=== PATIENT | male | born 1950 | race Caucasian/White ===

== ENCOUNTER → 2018-02-17 | Outpatient (CLI) | payer OTHER ==
--- NOTE | 2018-02-17 16:09 | 2DMMODE ---
[place] [address] 2 D/M-MODE ECHOCARDIOGRAM Name: MARCIA DEL CASTILLO Room: [facility]#: [id number] Admission: 02/17/18 Attend Phys: Jesse Nathan, Discharge: Date of : 46 Date of Service: 02/17/18 1609 Report #: [id number] THIS REPORT FOR: //name// APPROVED REPORT Study performed: 02/17/2018 09:19:03 EXAM: Comprehensive 2D, Doppler, and color-flow Echocardiogram Patient Location: Out-Patient BSA: 2.15 HR: 54 bpm BP: 142/76 mmHg Other Information Study Quality: Good Indications Murmur 2D Dimensions LVEF(%): 77.64 (>50%) IVSd: 11.00 (7-11mm) LVOT Diam: 20.30 (18-24mm) LVDd: 48.58 mm PWd: 11.03 (7-11mm) Ascending Ao: 34.63 (22-36mm) LVDs: 26.05 (25-40mm) Aortic Root: 25.05 mm Boss's LVEF: 77.64 % Volumes Left Atrial Volume (Systole) LA ESV Index: 25.00 mL/m2 Aortic Valve AoV Peak Pj.: 1.63 m/s AO Peak Gr.: 10.57 mmHg LVOT Max P.86 mmHg AO Mean Gr.: 6.77 mmHg LVOT Mean P.22 mmHg LVOT Max V: 1.72 m/s AO V2 VTI: 36.69 cm LVOT Mean V: 1.14 m/s NANCY (VTI): 2.98 cm2 LVOT V1 VTI: 33.82 cm Mitral Valve E/A Ratio: 0.72 MV Decel. Time: 408.17 ms MV E Max Pj.: 0.70 m/[place] [address] 2 D/M-MODE ECHOCARDIOGRAM Name: MARCIA DEL CASTILLO Room: [facility]#: [id number] Admission: 02/17/18 Attend Phys: Jesse Nathan, Discharge: Date of : 46 Date of Service: 02/17/18 1609 Report #: [id number] MV PHT: 118.37 ms MVA (PHT): 1.86 cm2 TDI E/Lateral E': 7.78 E/Medial E': 10.00 Medial E' Pj.: 0.07 m/s Lateral E' Pj.: 0.09 m/s Pulmonary Valve PV Peak Pj.: 1.09 m/s PV Peak Gr.: 4.73 mmHg Left Ventricle The left ventricle is normal size. There is normal LV segmental wall motion. There is normal left ventricular wall thickness. Left ventricular systolic function is normal. The left ventricular ejection fraction is within the normal range. LVEF is 55-60%. Grade I - abnormal relaxation pattern. Right Ventricle The right ventricle is normal size. The right ventricular systolic function is normal. Atria The left atrium size is normal. The right atrium size is normal. Aortic Valve Aortic valve leaflets are mildly thickened. No aortic regurgitation is present. There is no aortic valvular stenosis. Mitral Valve The mitral valve is normal in structure. There is no mitral valve regurgitation noted. No evidence of mitral valve stenosis. Tricuspid Valve The tricuspid valve is normal in structure. Trace tricuspid regurgitation. Pulmonic Valve Pulmonic valve is not well visualized. There is no pulmonic valvular regurgitation. Great Vessels The aortic root is normal in size. IVC is normal in size and collapses with >50% [place] [address] 2 D/M-MODE ECHOCARDIOGRAM Name: MARCIA DEL CASTILLO Room: [facility]#: [id number] Admission: 02/17/18 Attend Phys: Jesse Nathan, Discharge: Date of : 46 Date of Service: 02/17/18 1609 Report #: [id number] Pericardium There is no pericardial effusion. <Conclusion> Left ventricular systolic function is normal. The left ventricular ejection fraction is within the normal range. <ELECTRONICALLY SIGNED> By: Jesse Grimm MD, [facility] 02/17/18 1609 1609 1609 Jesse Grimm MD, FAC /INF
== END ==
LOC: M.CRD 08:54
DX: R01.1 Cardiac murmur, unspecified (principal)

== ENCOUNTER → 2021-06-11 | Outpatient (CLI) | payer MEDICARE | LOC: M.ULTRA 09:10 | PROVIDERS: ATTEND Internal Medicine | DX: E04.1 Nontoxic single thyroid nodule (principal) ==